=== PATIENT | female | born 1945 | race African-American/Black ===

== ENCOUNTER 2024-01-16 08:28 | Emergency (ER) | payer OTHER ==
[~2024-01-16] VITALS: Ht 162.6 cm; Wt 73.0 kg
[2024-01-16 08:33] VITALS: BP 164/84; PULSE 93; RESP 16; O2SAT 95
[2024-01-16] MEDS: TETANUS, DIPHTHERIA, PERTUSSIS VAC/PF 0.5ML (>10YR OLD) IM ONE (09:55)
[2024-01-16 09:56] VITALS: TEMP 98
[2024-01-16] MEDS: ACETAMINOPHEN 325MG TABLET PO ONE (09:56)
== END 2024-01-16 12:13 | disposition home or self-care (01) ==
LOC: ER 08:28
DX: S09.90XA Unspecified injury of head, initial encounter (principal); I10 Essential (primary) hypertension; E78.00 Pure hypercholesterolemia, unspecified; M25.511 Pain in right shoulder; V43.52XA Car driver injured in collision with other type car in traffic accident, initial encounter; Y93.89 Activity, other specified; Y92.89 Other specified places as the place of occurrence of the external cause; Y99.8 Other external cause status
CPT/HCPCS: 70486; 73030; 73060; 90471; 90715; 99291